=== PATIENT | male | born 1960 | race Two or more races ===

== ENCOUNTER 2022-12-13 13:54 | Emergency (ER) | payer OTHER ==
[~2022-12-13] VITALS: Ht 172.7 cm; Wt 81.6 kg
[2022-12-13] MEDS ORDERED: VENLAFAXINE HCL50 MG PO (14:06)
== END 2022-12-13 16:39 | disposition home or self-care (01) ==
LOC: ER 13:54
DX: H61.22 Impacted cerumen, left ear (principal)